=== PATIENT | female | born 1960 | race Caucasian/White ===

== ENCOUNTER 2017-06-20 06:32 | Day surgery (SDC) | payer OTHER ==
[~2017-06-20 06:32] MED LIST: Lactated Ringers 1,000 ML IV SCH
[2017-06-20] MEDS ORDERED: fentaNYL 100 MCG/2 ML SDV ONE (07:34)
[2017-06-20] MEDS ORDERED: Midazolam 1 MG/ML 2 ML SDV ONE (07:34)
[2017-06-20] MEDS ORDERED: Propofol 200 MG/20 ML SDV ONE (07:34)
[2017-06-20 09:06] VITALS: BP 151/61
--- NOTE | 2017-06-21 10:45 | OR ---
DATE OF PROCEDURE: 06/20/2017 PROCEDURE: 1. EGD. 2. Colonoscopy. FINDINGS: 1. Normal Nirav-en-Y (no evidence of ulceration, narrowing, stricturing, normal pouch size). 2. Normal colonoscopy. COMPLICATIONS: None. PROCESS CONTROL OPERATOR: None. PREOPERATIVE DIAGNOSES: 1. Abdominal pain. 2. Screening colonoscopy. POSTOPERATIVE DIAGNOSES: 1. Abdominal pain. 2. Screening colonoscopy. RISKS: Risks, benefits, alternatives, and limitations including, but not limited to infection, bleeding, and perforation were explained to the patient and wished to proceed. DESCRIPTION OF PROCEDURE: The patient was placed in left lateral decubitus position. The EGD scope was introduced and advanced atraumatically into the Nirav-en-Y limb. There was no evidence of narrowing or stricturing. There was no ulceration. No gastritis. The pouch was appropriately sized. The esophagus was normal. No evidence of significant reflux. A digital rectal exam was performed next. The scope was introduced and advanced atraumatically to the ileocecal valve. A photo was taken. The scope was brought back through the ascending, transverse, descending colon, and retroflexed. No evidence of polyps. No diverticulosis. No old or new blood. No colitis. No abnormalities on retroflex. The most likely etiology of the patient's abdominal pain can be related to her gastric bypass surgery; however, no definitive answers could be noted today. Maury Stone MD /[id number]
== END 2017-06-20 09:25 | disposition home or self-care (01) ==
LOC: JP.SDS 06:32
PROVIDERS: ATTEND Surgery
DX: Z12.11 Encounter for screening for malignant neoplasm of colon (principal); R10.9 Unspecified abdominal pain; I10 Essential (primary) hypertension; E66.9 Obesity, unspecified; K21.9 Gastro-esophageal reflux disease without esophagitis; Z98.84 Bariatric surgery status
CPT/HCPCS: 43235; 45378; J2250; J2704; J3010; J7120

== ENCOUNTER 2023-06-12 13:29 | Emergency (ER) | payer OTHER ==
[2023-06-12 14:55] LABS: BASOPHILS ABSOLUTE AUTO 0.05 K/uL (0.00-0.10); BASOPHILS PERCENT AUTO 0.9 % (0.1-1.3); EOSINOPHILS ABSOLUTE AUTO 0.27 K/uL (0.00-0.40); EOSINOPHILS PERCENT AUTO 4.6 % (0.0-5.4); HEMATOCRIT 45.9 % (34.3-46.0); HEMOGLOBIN 14.9 g/dL (11.2-15.5); IMMATURE GRAN ABSOLUTE AUTO 0.01 K/uL (0.00-0.23); IMMATURE GRAN PERCENT AUTO 0.2 % (0.0-0.7); LYMPHOCYTES ABSOLUTE AUTO 0.71 K/uL (0.8-3.3); LYMPHOCYTES PERCENT AUTO 12.1 % (11.4-47.7); MEAN CORPUSCULAR HEMOGLOBIN 29.7 pg (31.6-35.5); MEAN CORPUSCULAR HGB CONC 32.5 g/dL (31.6-35.5); MEAN CORPUSCULAR VOLUME 91.6 fL (81.4-99.0); MONOCYTES PERCENT AUTO 10.3 % (3.3-12.6); NEUTROPHILS ABSOLUTE AUTO 4.21 K/uL (1.0-7.6); NEUTROPHILS PERCENT AUTO 71.9 % (40.0-78.1); PLATELET COUNT,PLT 431 K/uL (130-375); RED BLOOD CELL COUNT 5.01 M/uL (3.77-5.24); WHITE BLOOD CELL COUNT,WBC 5.9 K/uL (3.2-11.0)
[2023-06-12 15:15] LABS: ALANINE AMINOTRANSFERASE,ALT 15 U/L (12-78); ALBUMIN 3.7 g/dL (3.4-5.0); ALKALINE PHOSPHATASE 160 U/L (46-116); ASPARTATE AMNIOTRANSFERASE,AST 11 U/L (15-37); BILIRUBIN TOTAL 0.3 mg/dL (0.2-1.0); BLOOD UREA NITROGEN,BUN 18 mg/dL (7-18); CALCIUM 9.8 mg/dL (8.5-10.1); CARBON DIOXIDE,CO2 29 mmol/L (21-32); CHLORIDE,CL 99 mmol/L (100-108); EST CRCL DRUG DOSING (CG) 48.25 mL/min; ESTIMATED GFR 64 mL/min (>60); GLUCOSE RANDOM 104 mg/dL (74-106); POTASSIUM,K 3.1 mmol/L (3.6-5.2); PROTEIN TOTAL,TP 7.5 g/dL (6.4-8.2); SODIUM,NA 140 mmol/L (140-148)
[2023-06-12 15:15] LABS: BILIRUBIN,URINE MODERATE (NEGATIVE); COLOR,URINE YELLOW (YELLOW); GLUCOSE,URINE NEGATIVE (NEGATIVE); KETONES,URINE NEGATIVE (NEGATIVE); LEUKOCYTE ESTERASE,URINE TRACE (NEGATIVE); NITRITE,URINE NEGATIVE (NEGATIVE); OCCULT BLOOD,URINE SMALL (NEGATIVE); PROTEIN,URINE NEGATIVE (NEGATIVE)
[2023-06-12 15:16] LABS: ANION GAP 15.1 mmol/L (5.0-14.0)
[2023-06-12 15:21] LABS: AMORPHOUS SEDIMENT,URINE NOT SEEN; APPEARANCE,URINE SLIGHTLY CLOUDY (CLEAR); BACTERIA,URINE MODERATE; EPITHELIAL CELLS,URINE FEW; MUCUS,URINE FEW; RBC,URINE 20-30 (0-5)
[2023-06-12] MEDS: Iopamidol 612 MG/ML 100 ML Bottle IV SCH (15:54)
[2023-06-12] MEDS: Sodium Chloride 0.9% 50 ML IV SCH (15:54)
[2023-06-12] MEDS: droPERidol 5 MG/2 ML SDV IVPUSH ONE (16:02)
[2023-06-12] MEDS: HYDROmorphone 0.5 MG/0.5 ML Syringe IVPUSH ONE (16:02)
[2023-06-12] MEDS: Sodium Chloride 0.9% 1,000 ML IV STA (16:53)
[2023-06-12] MEDS: Diltiazem 25 MG/5 ML SDV IVPUSH ONE (17:49)
[2023-06-12] MEDS: Sodium Chloride 0.9% 10 ML Syringe FLUSH PRN (18:11)
[2023-06-12] MEDS: Metoprolol Tartrate 5 MG/5 ML SDV IVPUSH ONE (18:30)
[2023-06-12] MEDS: Metoprolol Succinate 25 MG Tab.ER PO ONE (18:44)
[2023-06-12 18:54] VITALS: BP 126/64; PULSE 86
== END 2023-06-12 19:00 | disposition home or self-care (01) ==
LOC: JP.ED 13:29
DX: I48.21 Permanent atrial fibrillation (principal); R11.0 Nausea; I10 Essential (primary) hypertension; K21.9 Gastro-esophageal reflux disease without esophagitis; E66.9 Obesity, unspecified; Z90.710 Acquired absence of both cervix and uterus; Z87.891 Personal history of nicotine dependence; Z88.0 Allergy status to penicillin; Z88.2 Allergy status to sulfonamides; Z68.39 Body mass index [BMI] 39.0-39.9, adult
CPT/HCPCS: 36415; 74177; 80053; 81001; 83605; 83690; 85025; 87086; 93005; 96374; 96375; 99284; A9270; J1170; J1790; J3490; J7030; Q9967; 93010

== ENCOUNTER 2023-06-25 17:10 | Emergency (ER) | payer OTHER ==
[2023-06-25 17:55] VITALS: BP 148/68; PULSE 60
[2023-06-25 18:48] LABS: APPEARANCE,URINE CLEAR (CLEAR); BILIRUBIN,URINE NEGATIVE (NEGATIVE); COLOR,URINE YELLOW (YELLOW); GLUCOSE,URINE NEGATIVE (NEGATIVE); KETONES,URINE NEGATIVE (NEGATIVE); LEUKOCYTE ESTERASE,URINE NEGATIVE (NEGATIVE); NITRITE,URINE NEGATIVE (NEGATIVE); OCCULT BLOOD,URINE MODERATE (NEGATIVE); PH,URINE 5.5 (5.0-8.0); PROTEIN,URINE NEGATIVE (NEGATIVE); UROBILINOGEN,URINE 0.2 EU/dL (0.2-1.0)
[2023-06-25 18:55] LABS: BASE EXCESS VENOUS 1.8 mm/L; BICARBONATE,VENOUS 26.7 mmol/L; CARBOXYHEMOGLOBIN 3.2 % (0.0-1.6); METHEMOGLOBIN 0.7 %; O2 SATURATION VENOUS 81.8; OXYHEMOGLOBIN 78.6 %; PCO2 VENOUS 44.9 mm/Hg; PH,VENOUS 7.391 (7.350-7.450); PO2 VENOUS 46.6 mm/Hg; TOTAL HEMOGLOBIN 12.5 g/dL (12.0-16.0)
[2023-06-25 18:56] LABS: WHITE BLOOD CELL COUNT,WBC 5.1 K/uL (3.2-11.0)
[2023-06-25 18:57] LABS: HEMOGLOBIN 12.5 g/dL (11.2-15.5); PLATELET COUNT,PLT 283 K/uL (130-375)
[2023-06-25 18:59] LABS: AMORPHOUS SEDIMENT,URINE RARE; BACTERIA,URINE FEW; EPITHELIAL CELLS,URINE RARE; MUCUS,URINE NOT SEEN; WBC,URINE NOT SEEN (0-5)
[2023-06-25 18:59] LABS: EOSINOPHILS ABSOLUTE MAN 0.26 K/uL (0.00-0.40); EOSINOPHILS PERCENT MAN 5 % (2-4); LYMPHOCYTES ABSOLUTE MAN 1.22 K/uL (0.8-3.3); LYMPHOCYTES PERCENT MAN 24 % (24-44); MONOCYTES ABSOLUTE MAN 0.31 K/uL (0.20-0.90); MONOCYTES PERCENT MAN 6 % (2-6); NEUTROPHILS ABSOLUTE MAN 3.32 K/uL (1.0-7.6); SEG NEUTROPHILS PERCENT MAN 65 % (36-66)
[2023-06-25 19:08] LABS: INR 1.1; PROTHROMBIN TIME 10.8 sec (9.2-10.6)
[2023-06-25] MEDS: Sodium Chloride 0.9% 1,000 ML IV ONE (19:11)
[2023-06-25 19:30] LABS: A/G RATIO 1.2 (1.2-2.2); ALANINE AMINOTRANSFERASE,ALT 23 U/L (12-78); ALBUMIN 3.5 g/dL (3.4-5.0); ALKALINE PHOSPHATASE 139 U/L (46-116); ANION GAP 13.5 mmol/L (5.0-14.0); ASPARTATE AMNIOTRANSFERASE,AST 17 U/L (15-37); BILIRUBIN TOTAL 0.2 mg/dL (0.2-1.0); BLOOD UREA NITROGEN,BUN 11 mg/dL (7-18); CALCIUM 9.1 mg/dL (8.5-10.1); CARBON DIOXIDE,CO2 27 mmol/L (21-32); CHLORIDE,CL 105 mmol/L (100-108); CREATININE 0.7 mg/dL (0.6-1.0); EST CRCL DRUG DOSING (CG) 68.93 mL/min; ESTIMATED GFR 98 mL/min (>60); GLUCOSE RANDOM 98 mg/dL (74-106); POTASSIUM,K 3.5 mmol/L (3.6-5.2); PRO B-TYPE NATRIUR PEPT,BNPPRO 763 pg/mL (5-125); PROTEIN TOTAL,TP 6.5 g/dL (6.4-8.2); SODIUM,NA 142 mmol/L (140-148); TROPONIN I HIGH SENSITIVITY 8.5 pg/mL (<=60.3)
== END 2023-06-25 20:08 | disposition home or self-care (01) ==
LOC: JP.ED 17:10
DX: R07.89 Other chest pain (principal); E86.0 Dehydration; R60.0 Localized edema; I10 Essential (primary) hypertension; K21.9 Gastro-esophageal reflux disease without esophagitis; Z90.710 Acquired absence of both cervix and uterus; Z79.899 Other long term (current) drug therapy; Z79.01 Long term (current) use of anticoagulants; Z88.2 Allergy status to sulfonamides; Z88.0 Allergy status to penicillin
CPT/HCPCS: 36415; 71045; 80053; 81001; 82803; 83605; 83880; 84484; 85025; 85610; 96360; 99285; J7030

== ENCOUNTER 2024-01-27 16:55 | Emergency (ER) | payer OTHER ==
[2024-01-27 17:15] VITALS: PULSE 63
[2024-01-27 17:41] LABS: BASOPHILS ABSOLUTE AUTO 0.05 K/uL (0.00-0.10); BASOPHILS PERCENT AUTO 0.9 % (0.1-1.3); EOSINOPHILS ABSOLUTE AUTO 0.27 K/uL (0.00-0.40); EOSINOPHILS PERCENT AUTO 4.6 % (0.0-5.4); HEMATOCRIT 36.7 % (34.3-46.0); HEMOGLOBIN 11.9 g/dL (11.2-15.5); IMMATURE GRAN PERCENT AUTO 0.2 % (0.0-0.7); LYMPHOCYTES ABSOLUTE AUTO 1.37 K/uL (0.8-3.3); LYMPHOCYTES PERCENT AUTO 23.6 % (11.4-47.7); MEAN CORPUSCULAR HEMOGLOBIN 29.5 pg (31.6-35.5); MEAN CORPUSCULAR HGB CONC 32.4 g/dL (31.6-35.5); MEAN CORPUSCULAR VOLUME 90.8 fL (81.4-99.0); MONOCYTES ABSOLUTE AUTO 0.65 K/uL (0.20-0.90); MONOCYTES PERCENT AUTO 11.2 % (3.3-12.6); NEUTROPHILS ABSOLUTE AUTO 3.46 K/uL (1.0-7.6); NEUTROPHILS PERCENT AUTO 59.5 % (40.0-78.1); PLATELET COUNT,PLT 353 K/uL (130-375); RED BLOOD CELL COUNT 4.04 M/uL (3.77-5.24); WHITE BLOOD CELL COUNT,WBC 5.8 K/uL (3.2-11.0)
[2024-01-27 18:07] LABS: ANION GAP 9.9 mmol/L (5.0-14.0); CALCIUM 9.5 mg/dL (8.5-10.1); CREATININE 1.1 mg/dL (0.6-1.0); EST CRCL DRUG DOSING (CG) 43.87 mL/min; POTASSIUM,K 3.8 mmol/L (3.6-5.2); TROPONIN I HIGH SENSITIVITY 4.4 pg/mL (<=60.3)
[2024-01-27 18:23] LABS: IMMATURE GRAN ABSOLUTE AUTO 0.01 K/uL (0.00-0.23)
[2024-01-27 20:22] VITALS: BP 160/68
== END 2024-01-27 20:29 | disposition home or self-care (01) ==
LOC: JP.ED 16:55
DX: R07.89 Other chest pain (principal); I10 Essential (primary) hypertension; E66.9 Obesity, unspecified; Z88.0 Allergy status to penicillin; Z88.2 Allergy status to sulfonamides; Z79.899 Other long term (current) drug therapy; Z90.710 Acquired absence of both cervix and uterus; Z68.41 Body mass index [BMI] 40.0-44.9, adult
CPT/HCPCS: 36415; 71046; 71046-26; 71250; 71250-26; 80048; 83605; 84145; 84484; 85025; 93005; 99285

== ENCOUNTER 2025-01-14 16:22 | Emergency (ER) | payer OTHER ==
[2025-01-14 16:51] LABS: BASOPHILS ABSOLUTE AUTO 0.06 K/uL (0.00-0.10); BASOPHILS PERCENT AUTO 0.7 % (0.1-1.3); EOSINOPHILS ABSOLUTE AUTO 0.26 K/uL (0.00-0.40); EOSINOPHILS PERCENT AUTO 3.1 % (0.0-5.4); IMMATURE GRAN ABSOLUTE AUTO 0.03 K/uL (0.00-0.23); IMMATURE GRAN PERCENT AUTO 0.4 % (0.0-0.7); LYMPHOCYTES ABSOLUTE AUTO 1.53 K/uL (0.8-3.3); LYMPHOCYTES PERCENT AUTO 18.2 % (11.4-47.7); MONOCYTES ABSOLUTE AUTO 0.75 K/uL (0.20-0.90); MONOCYTES PERCENT AUTO 8.9 % (3.3-12.6); NEUTROPHILS ABSOLUTE AUTO 5.76 K/uL (1.0-7.6); NEUTROPHILS PERCENT AUTO 68.7 % (40.0-78.1); PLATELET COUNT,PLT 430 K/uL (130-375); RED BLOOD CELL COUNT 4.46 M/uL (3.77-5.24); WHITE BLOOD CELL COUNT,WBC 8.4 K/uL (3.2-11.0)
[2025-01-14 17:26] LABS: A/G RATIO 1.0 (1.2-2.2); ALANINE AMINOTRANSFERASE,ALT 18 U/L (12-78); ASPARTATE AMNIOTRANSFERASE,AST 13 U/L (15-37); BILIRUBIN TOTAL 3.5 mg/dL (0.2-1.0); BLOOD UREA NITROGEN,BUN 31 mg/dL (7-18); CARBON DIOXIDE,CO2 28 mmol/L (21-32); CHLORIDE,CL 100 mmol/L (100-108); CREATININE 1.8 mg/dL (0.6-1.0); EST CRCL DRUG DOSING (CG) 25.30 mL/min; ESTIMATED GFR 31 mL/min (>60); GLUCOSE RANDOM 116 mg/dL (74-106); POTASSIUM,K 3.5 mmol/L (3.6-5.2); PROTEIN TOTAL,TP 7.5 g/dL (6.4-8.2); SODIUM,NA 138 mmol/L (140-148); TROPONIN I HIGH SENSITIVITY 7.7 pg/mL (<=60.3)
[2025-01-14 17:48] VITALS: BP 135/62; PULSE 61
== END 2025-01-14 17:51 | disposition home or self-care (01) ==
LOC: JP.ED 16:22
DX: R07.89 Other chest pain (principal); N28.9 Disorder of kidney and ureter, unspecified; I48.91 Unspecified atrial fibrillation; I10 Essential (primary) hypertension; E66.9 Obesity, unspecified; Z79.899 Other long term (current) drug therapy; Z79.01 Long term (current) use of anticoagulants; Z88.0 Allergy status to penicillin; Z88.2 Allergy status to sulfonamides; Z68.42 Body mass index [BMI] 45.0-49.9, adult
CPT/HCPCS: 36415; 71046; 71046-26; 80053; 83605; 84484; 85025; 93005; 99284